=== PATIENT | male | born 1970 | race Hispanic/Latino ===

== ENCOUNTER 2019-04-17 15:23 | Emergency (ER) | payer SELFPAY ==
[2019-04-17] MEDS ORDERED: GENTAMICIN SULFATE 80 MG/2 ML VIAL ONE (15:52)
[2019-04-17] MEDS ORDERED: CEFTRIAXONE SODIUM 1 GM ONE (15:53)
[2019-04-17] MEDS ORDERED: MORPHINE SULFATE 4 MG/1ML SYG ONE (15:53)
[2019-04-17] MEDS ORDERED: ONDANSETRON HCL 4 MG/2 ML VIAL ONE (15:53)
[2019-04-17] MEDS ORDERED: TETANUS/DIPHTHERIA TOXOID [ADULT] 0.5 ML VIAL IM ONE (15:54)
[2019-04-17] MEDS ORDERED: SODIUM CHLORIDE 0.9% 50 ML IV ONE (15:56)
[2019-04-17] MEDS ORDERED: LIDOCAINE HCL 1% 20 ML VIAL ONE (16:16)
== END 2019-04-17 17:55 | disposition home or self-care (01) ==
LOC: EDH 15:23
DX: S92.411B Displaced fracture of proximal phalanx of right great toe, initial encounter for open fracture (principal); S91.111A Laceration without foreign body of right great toe without damage to nail, initial encounter; W28.XXXA Contact with powered lawn mower, initial encounter; Y93.89 Activity, other specified; Y92.096 Garden or yard of other non-institutional residence as the place of occurrence of the external cause; Y99.8 Other external cause status
CPT/HCPCS: 12041; 73630; 90471; 90714; 96372; 96374; 96375; 99284; J0696; J1580; J2270; J2405